=== PATIENT | male | born 1995 | race Hispanic/Latino ===

== ENCOUNTER 2016-08-27 19:30 | Emergency (ER) | payer BC, OTHER ==
[~2016-08-27] VITALS: Ht 172.7 cm; Wt 74.8 kg
[2016-08-27] MEDS ORDERED: DEXT5TAB25 (19:45)
--- NOTE | 2016-08-27 20:16 | Diagnostic Imaging Report ---
INDICATION: Left ankle pain AP, oblique, and lateral views of the left ankle are obtained. No fracture or acute bony abnormality is seen. Joint spaces are unremarkable. IMPRESSION: Negative left ankle. Dictated by: Dictated on workstation # [id number]
--- NOTE | 2016-08-27 20:16 | Diagnostic Imaging Report ---
INDICATION: Left foot pain. AP, oblique and lateral views of the left foot are obtained. FINDINGS: No fracture or acute bony abnormality is seen. IMPRESSION: Negative left foot. Dictated by: Dictated on workstation # [id number]
--- NOTE | 2016-08-27 20:18 | Diagnostic Imaging Report ---
INDICATION: Trauma with chest pain PA and lateral chest obtained at 8:18 p.m. Heart and mediastinal silhouette are normal in appearance. The lungs are clear. There is no pneumothorax or pleural fluid. There is no overt bony abnormality in the chest. IMPRESSION: Negative chest. Dictated by: Dictated on workstation # [id number]
[2016-08-27] MEDS ORDERED: NAPR500T3 PO (20:25)
--- NOTE | 2016-08-27 20:25 | ED General ---
General Chief Complaint: General Problems/Pain Stated Complaint: PAIN IN CHEST/HEARD A POP WHILE LIFTING SOMEONE Nursing Triage Note: PT TO ED W/ C/O LT ANKLE PAIN X3 DAYS ET STERNUM PAIN X6 DAYS. 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 ALSO REPORTS ANKLE PAIN ALSO R/T DANCE. 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 SINCE THEN HE HAS HAD PAIN THE MIDDLE OF HIS CHEST WITH CERTAIN MOVEMENTS OR POSITIONS OR TAKING A REALLY DEEP BREATH NO SHORTNESS OF BREATH NO DIZZINESS STATES ON WEDNESDAY, HE WAS DOING A TURN AND SAW HIS LEFT ANKLE "POP IN AND OUT OF PLACE" PT STATES HE STILL HAS PAIN IN ANKLE AND ALSO IN LATERAL FOOT/PLANTAR ASPECT NO PARESTHESIAS OR MOTOR DEFICITS PT HAS NOT SOUGHT CARE FOR EITHER ONE OF THESE PROBLEMS DENIES ANY PRIOR SUCH INJURIES TOOK 1 IBUPROFEN THIS AM WITH SOME RELIEF SYMPTOMS ARE NO DIFFERENT TONIGHT. PCP: YUE, PT IS ALSO A [employer] STUDENT Allergies and Home Medications Allergies Coded Allergies: No Known Drug Allergies (Unverified , 08/27/16) Home Medications Dextroamphetamine/Amphetamine 5 Mg Tablet, #28 (Reported) Naproxen 500 Mg Tablet, 500 MG PO BID, #20 Prescribed by: ANITA BLANCO on 08/27/162024 Constitutional: no symptoms reported Respiratory: no symptoms reported Cardiovascular: see HPI Gastrointestinal: no symptoms reported Musculoskeletal: see HPI Skin: no symptoms reported Psychiatric/Neurological: No Symptoms Reported Hematologic/Lymphatic: No Symptoms Reported Immunological/Allergic: no symptoms reported Past Cwhidqn-Ggdshw-Ufbzxy Hx Patient Social History Alcohol Use: Denies Use Recreational Drug Use: No Smoking Status: Never a Smoker Recent Foreign Travel: No Contact w/Someone Who Travel: No Recent Infectious Disease Expo: No Recent Hopitalizations: No Surgeries HX Surgeries: No Respiratory Hx Respiratory Disorders: No Cardiovascular Hx Cardiac Disorders: No Neurological Hx Neurological Disorders: No Reproductive System Hx Reproductive Disorders: No Genitourinary Hx Genitourinary Disorders: No Gastrointestinal Hx Gastrointestinal Disorders: No Musculoskeletal Hx Musculoskeletal Disorders: No Endocrine Hx Endocrine Disorders: No HEENT HX ENT Disorders: No Cancer Hx Cancer: No Psychosocial Hx Psychiatric Problems: Yes Behavioral Health Disorders: ADD/ADHD Integumentary HX Skin/Integumentary Disorder: No Blood Transfusions Hx Blood Disorders: No Physical Exam Vital Signs Vital Sign - Last 12Hours 08/27/16 19:33 Temp 97.1 Pulse 62 Resp 18 B/P (MAP) 141/89 Pulse Ox 99 O2 Delivery Room Air Capillary Refill : Less Than 3 Seconds General Appearance: No Apparent Distress, WD/WN HEENT: PERRL/EOMI, Normal ENT Inspection Respiratory: Chest Non Tender, Normal Breath Sounds, No Accessory Muscle Use, No Respiratory Distress Cardiovascular: Regular Rate, Rhythm, No Murmur, Normal Peripheral Pulses Gastrointestinal: Soft Back: No CVA Tenderness Extremity: Other (SLIGHT SWELLING OVER LEFT LATERAL MALLEOLUS, SLIGHT TENDERNESS TO 5TH METATARSAL AREA. ) Neurologic/Psychiatric: Alert, Oriented x3, No Motor/Sensory Deficits, Normal Mood/Affect, associate designer II-XII Norm as Tested Skin: Normal Color, Warm/Dry Splinting and Joint Reduction : Hank wrap: Yes Splints: Air Stirrup [place] Progress/Results/Core Measures Results/Orders My Orders Orders - ANITA BLANCO DO Chest Pa/Lat (2 View) (08/27/16 19:50) Ankle, Left, 3 Views (08/27/16 19:50) Foot, Left, 3 Views (08/27/16 19:58) Hank Bandage (08/27/16 20:20) Gel Ankle Brace (08/27/16 20:20) Rx-Naproxen (Rx-Naprosyn) (08/27/16 20:26) Vital Signs/I&O Vital Sign - Last 12Hours 08/27/16 08/27/16 19:33 20:33 Temp 97.1 97.1 Pulse 62 62 Resp 18 18 B/P (MAP) 141/89 Pulse Ox 99 99 O2 Delivery Room Air Blood Pressure Mean: 106 Diagnostic Imaging Comments CXR--NO ACUTE PROCESS XRAYS LEFT FOOT AND ANKLE--NO ACUTE PROCESS PER RADIOLOGIST REPORTS Reviewed: Reviewed by Me Departure Impression Impression: Primary Impression: Strain of chest wall Additional Impression: Left ankle sprain Disposition: 01 HOME, SELF-CARE Condition: Stable Departure-Patient Inst. Referrals: NO,LOCAL PHYSICIAN (PCP) Primary Care Physician BEATRIZ GONZALEZ MD Patient Instructions: AIRCAST, Ankle Sprain (DC), Chest Pain That Is Not Caused by the Heart (DC) Add. Discharge Instructions: HANK WRAP AND SPLINT NEEDED FOR COMFORT ICE TO AREA AT 20 MINUTE INTERVALS ELEVATE FOOT MUCH POSSIBLE FOLLOW UP WITH [facility] ON WEDNESDAY FOR FURTHER CARE All discharge instructions reviewed with patient and/or family. Voiced understanding. Scripts Naproxen (Naproxen) 500 Mg Tablet 500 MG PO BID, #20 TAB Prov: ANITA BLANCO DO 08/27/16 ANITA BLANCO DO Aug 27, 2016 20:25
[2016-08-27] MEDS ORDERED: RX-NAPROXEN (NAPROSYN) 250 MG TAB PPK#4 PO STA (20:26)
[2016-08-27 20:33] VITALS: BP 141/89
== END 2016-08-27 20:32 | disposition home or self-care (01) ==
LOC: EDUNIT# 19:30 → ER 19:33
DX: S93.402A Sprain of unspecified ligament of left ankle, initial encounter (principal); S29.011A Strain of muscle and tendon of front wall of thorax, initial encounter; X50.9XXA Other and unspecified overexertion or strenuous movements or postures, initial encounter; Y93.41 Activity, dancing; Y92.39 Other specified sports and athletic area as the place of occurrence of the external cause; Y99.8 Other external cause status
CPT/HCPCS: 71020; 73610; 73630; 99283

== ENCOUNTER 2021-01-09 20:42 | Emergency (ER) | payer BC, OTHER ==
[~2021-01-09] VITALS: Ht 172.7 cm; Wt 99.7 kg
[~2021-01-09 20:42] MED LIST: ACHD5005 PO; DEXT5TAB25; NAPR-915 PO
--- NOTE | 2021-01-09 21:17 | ED Headache ---
General Chief Complaint: Head/Cervical Problems Stated Complaint: HEAD INJURY Source: patient Exam Limitations: no limitations (LISA RAMOS APRN) History of Present Illness Date Seen by Provider: Jan 09, 2021 Time Seen by Provider: 21:14 Initial Comments To ER with reports of pain at the base of his skull. He was playing rugby when his head collided with another individual's thigh. This caused him to extend his neck and he heard a popping sensation. He does not have any tingling or weakness in either of his arms or legs. He has not had these symptoms at any time. He does have a headache with photophobia no nausea or vomiting. Timing/Duration: 1 week Severity/Quality: moderate, constant Location: occipital Prior Headaches/Recent Trauma: head trauma < 24 hrs ago Associated Symptoms: denies symptoms (LISA RAMOS APRN) Allergies and Home Medications Allergies Coded Allergies: No Known Drug Allergies (Unverified , 08/27/16) Home Medications Hydrocodone Bit/Acetaminophen 1 Tab Tab, 1 TAB PO Q6H PRN for PAIN-MODERATE Prescribed by: CHLOÉ SYED on 03/03/19 1601 Naproxen 500 Mg Tablet, 500 MG PO BID Prescribed by: ANITA BLANCO on 08/27/162024 Patient Home Medication List Home Medication List Reviewed: Yes (LISA RAMOS APRN) Review of Systems Review of Systems Constitutional: see HPI Eyes: No Symptoms Reported Ears, Nose, Mouth, Throat: no symptoms reported Respiratory: no symptoms reported Cardiovascular: no symptoms reported Genitourinary: no symptoms reported Musculoskeletal: no symptoms reported Skin: no symptoms reported Psychiatric/Neurological: See HPI, Headache (LISA RAMOS APRN) Past Ccvehlm-Lugqvo-Nfaoqb Hx Patient Social History Tobacco Use?: No Substance use?: Yes Substance type: Marijuana Alcohol Use?: Yes Alcohol Frequency: Once in a while Pt feels they are or have been: No (LISA RAMOS APRN) Immunizations Up To Date Second COVID19 Vaccination Kurt: 11/04 COVID19 Vaccine Fiscal Economist: celina (LISA RAMOS APRN) Seasonal Allergies Seasonal Allergies: No (LISA RAMOS APRN) Past Medical History Surgeries: Yes (wisdom teeth removal) Respiratory: No Cardiac: No Neurological: No Reproductive Disorders: No Genitourinary: No Gastrointestinal: No Musculoskeletal: No Endocrine: No HEENT: No Loss of Vision: Denies Hearing Impairment: Denies Cancer: No ADD/ADHD Integumentary: No Blood Disorders: No Adverse Reaction/Blood Tranf: No (LISA RAMOS APRN) Family Medical History Hypertension (LISA RAMOS APRN) Physical Exam Vital Signs Vital Signs - First Documented 01/09/21 21:00 Temp 37.1 Pulse 93 Resp 18 B/P (MAP) 135/89 (104) Pulse Ox 96 O2 Delivery Room Air (ADRIANE RENEE MD) Vital Signs Capillary Refill : (LISA RAMOS APRN) Height, Weight, BMI Height: 5'8.00" Weight: 165lbs. oz. 74.935261qx; BMI Method:Stated General Appearance: WD/WN, no apparent distress HEENT: PERRL/EOMI, normal ENT inspection Neck: non-tender, full range of motion, other (pain at base of skll posteriorly minimal tenderness. Fine motor skills intact sensation intact no tingling or paresthesias. Bilateral upper extremity strength 5 out of 5. No concern for cord syndrome at this time.) Respiratory: no respiratory distress Gastrointestinal: normal bowel sounds, non tender Extremities: normal range of motion, non-tender Psychiatric: alert, oriented x 3 Crainal Nerves: normal hearing, normal speech, PERRL Coordination/Gait: normal finger to nose Skin: normal color, warm/dry (LISA RAMOS APRN) Progress/Results/Core Measures Results/Orders Vital Signs/I&O 01/09/21 01/09/21 21:00 22:10 Temp 37.1 37.1 Pulse 93 93 Resp 18 18 B/P (MAP) 135/89 (104) 135/89 (104) Pulse Ox 96 96 O2 Delivery Room Air Room Air (ADRIANE RENEE MD) Departure Communication (Admissions) NAME: REE LOWRY [facility] REC#: [id number] PT STATUS: REG ER : 1995 PHYSICIAN: LISA RAMOS APRN ADMIT DATE: 01/09/21/ER Draft Date of Exam:01/09/21 CT HEAD/CERVICAL SPINE WO PROCEDURE: CT head and CT cervical spine without contrast. TECHNIQUE: Multiple contiguous axial images were obtained through the brain and cervical spine without the use of intravenous contrast. Sagittal and coronal reformations through the cervical spine were then performed. Auto Exposure Controls were utilized during the CT exam to meet ALARA standards for radiation dose reduction. INDICATION: Trauma playing rugby. Head and neck injury. COMPARISON: None. FINDINGS: CT HEAD: The ventricles and cortical sulci are age-appropriate. There is no midline shift or mass effect. No acute intracranial hemorrhage is seen. There is no CT evidence of acute territorial ischemia. The calvarium is intact. Visualized paranasal sinuses are clear. CT CERVICAL SPINE: There is straightening of the cervical lordosis but no spondylolisthesis. No fracture is seen in the cervical spine. No bony fragment or hyperdense fluid collection is seen in the spinal canal. Soft tissues about the cervical spine demonstrate no acute abnormality. IMPRESSION: 1. No acute intracranial hemorrhage or calvarium fracture. 2. No fracture of the cervical spine. Dictated on workstation # [id number] Dict: 01/09/218 Trans: 01/09/212153 [facility] [id number] Interpreted by: KINJAL BARROS MD Electronically signed by: (LISA RAMOS APRN) Impression Primary Impression: Concussion without loss of consciousness Disposition: HOME, SELF-CARE Condition: Stable Departure-Patient Inst. Decision time for Depature: 22:03 (LISA RAMOS APRN) Referrals: NO,LOCAL PHYSICIAN (PCP) Primary Care Physician YAYO NUÑEZ (Family) Primary Care Physician Patient Instructions: Concussion, Adult ED Add. Discharge Instructions: 1. Tylenol and ibuprofen for headache or pain. Follow-up with your doctor next week. All discharge instructions reviewed with patient and/or family. Voiced understanding. Work/School Note: Work Release Form Date Seen in the Emergency Department: Jan 09, 2021 Return to Work: Jan 11, 2021 ATTENDING PHYSICIAN NOTE: I was physically present as attending physician in the emergency department during the care of this patient, but I was not directly involved in the decision making or delivery of care for this patient. (ADRIANE RENEE MD) LISA RAMOS APRN Jan 09, 2021 21:17 ADRIANE RENEE MD Jan 12, 2021 07:25
--- NOTE | 2021-01-09 21:54 | Diagnostic Imaging Report ---
PROCEDURE: CT head and CT cervical spine without contrast. TECHNIQUE: Multiple contiguous axial images were obtained through the brain and cervical spine without the use of intravenous contrast. Sagittal and coronal reformations through the cervical spine were then performed. Auto Exposure Controls were utilized during the CT exam to meet ALARA standards for radiation dose reduction. INDICATION: Trauma playing rugby. Head and neck injury. COMPARISON: None. FINDINGS: CT HEAD: The ventricles and cortical sulci are age-appropriate. There is no midline shift or mass effect. No acute intracranial hemorrhage is seen. There is no CT evidence of acute territorial ischemia. The calvarium is intact. Visualized paranasal sinuses are clear. CT CERVICAL SPINE: There is straightening of the cervical lordosis but no spondylolisthesis. No fracture is seen in the cervical spine. No bony fragment or hyperdense fluid collection is seen in the spinal canal. Soft tissues about the cervical spine demonstrate no acute abnormality. IMPRESSION: 1. No acute intracranial hemorrhage or calvarium fracture. 2. No fracture of the cervical spine. Dictated by: Dictated on workstation # [id number]
[2021-01-09 22:10] VITALS: BP 135/89
== END 2021-01-09 22:10 | disposition home or self-care (01) ==
LOC: EDUNIT# 20:42 → ER 20:44
DX: S06.0X0A Concussion without loss of consciousness, initial encounter (principal); W50.0XXA Accidental hit or strike by another person, initial encounter; Y93.63 Activity, rugby
CPT/HCPCS: 70450; 72125